=== PATIENT | female | born 1985 | race Caucasian/White ===

== ENCOUNTER 2018-03-14 06:38 | Emergency (ER) | payer BC ==
--- NOTE | 2018-03-14 07:31 | EDM.PDOC ---
ED HPI GENERAL MEDICAL PROBLEM - General Chief Complaint: ENT Problem Stated Complaint: DENTAL COMPLAINT Time Seen by Provider: 03/14/18 07:07 Source of Information: Reports: Patient, RN (Linda) History Limitations: Reports: No Limitations - History of Present Illness INITIAL COMMENTS - FREE TEXT/NARRATIVE: The patient states that she underwent right carpal tunnel release under general anesthesia 2 days ago, 03/12/2018. She states that she developed a some discomfort to her right maxillary sinus area that evening. She woke with right maxillary pain yesterday morning, 03/13/2018, and over the course of the day yesterday, the pain extended to her upper right teeth. This morning she woke with swelling to the right maxillary sinus area. She denies having any dentalgia , such as with mastication. No recent fever. No nasal drainage. She states that her nasal mucous membranes feel dry and stuffy. No otalgia or decreased hearing , either side. No prior similar symptoms. The patient's PCP is Snehal Nelson. Right Face/Facial Pain Score (Numeric/FACES): 7 - Related Data Allergies Allergy/AdvReac Type Severity Reaction Status Date / Time No Known Allergies Allergy Verified 03/14/18 07:14 Home Meds: Home Meds Hydrocodone/Acetaminophen [Hydrocodon-Acetaminophen 5-325] 1 tab PO Q4H PRN [History] Past Medical History - Past Surgical History HEENT Surgical History: Reports: Oral Surgery (wisdom teeth extraction 2015) Female Surgical History: Reports: Section ( 2005), Tubal Ligation ( 2005) Musculoskeletal Surgical History: Reports: Carpal Tunnel (right only, 03/12/2018) Social & Family History - Tobacco Use Smoking Status *Q: Former Smoker Years of Tobacco use: 16 Packs/Tins Daily: 0.5 Month/Year Tobacco Last Used: Quit 2016 - Caffeine Use Caffeine Use: Reports: None - Alcohol Use Alcohol Use History: Yes Alcohol Use Frequency: Socially - Recreational Drug Use Recreational Drug Use: No - Living Situation & Occupation Living situation: Reports: , with Spouse, with Family (3 kids) Occupation: Employed ([employer] for [employer]) ED ROS GENERAL - Review of Systems Review Of Systems: ROS reveals no pertinent complaints other than HPI. ED EXAM, GENERAL - Physical Exam Exam: See Below Exam Limited By: No Limitations General Appearance: Alert, WD/WN, No Apparent Distress Eye Exam: Bilateral Eye: EOMI, Normal Inspection Ears: Normal External Exam, Normal Canal, Hearing Grossly Normal, Normal TMs Nose: Normal Inspection, No Blood, Other (Bilateral nasal mucosa edema, with no rhinorrhea or nasal drainage) Throat/Mouth: Normal Inspection, Normal Lips, Normal Teeth, Normal Gums, Normal Oropharynx, Normal Voice, No Airway Compromise Head: Atraumatic, Normocephalic, Facial Swelling (the patient believes that she has mild swelling to her right maxillary area, including the right nasolabial fold and upper right lip - I do not appreciate any swelling), Sinus Tenderness ( right maxillary only) Neck: Normal Inspection, Supple, Non-Tender, Full Range of Motion. No: Lymphadenopathy (L), Lymphadenopathy (R) Course - Vital Signs Last Recorded V/S: Last Vital Signs Temp 36.8 C 03/14/18 07:04 Pulse 76 03/14/18 07:04 Resp 16 03/14/18 07:04 BP 113/76 03/14/18 07:04 Pulse Ox 98 03/14/18 07:04 - Re-Assessments/Exams Free Text/Narrative Re-Assessment/Exam: 03/14/18 07:28 Clinically, the patient likely has right maxillary sinusitis, but I want to be sure that there was no physical damage caused when she was intubated 2 days ago. I don't know if a nasogastric tube was placed. I have therefore ordered a CT of the sinuses. We discussed the risk of radiation, and the alternative of evaluation by ENT, however, the patient would prefer to go the CT route. 03/14/18 08:02 CT of the paranasal sinuses without contrast is read by Dr. Castle as: 1. Incidental nasal septal deviation. 2. CT study of the paranasal sinuses is otherwise unremarkable. 03/14/18 08:11 Case discussed with [place] at [facility] at 08:09. She attempted to put me in touch with the ENT Dr. Reeves, however, Dr. Reeves is currently unavailable. She expects that Dr. Reeves will be available in about 10 minutes, and will call me back. 03/14/18 08:[address] Reeves at 08:27. She recommends that the patient start using [id number]-jfzlpay Flonase, and she would like to evaluate the patient in her office tomorrow morning at 10:15 [address], for nasal endoscopy. 03/14/18 08:39 The above plan was discussed with the patient. She is agreeable. I have pushed the CT images to [facility]. Departure - Departure Time of Disposition: 08:33 Disposition: Home, Self-Care 01 Condition: Fair Clinical Impression: Disorder of maxillary sinus - Discharge Information *PRESCRIPTION DRUG MONITORING PROGRAM REVIEWED*: Not Applicable *COPY OF PRESCRIPTION DRUG MONITORING REPORT IN PATIENT ELEAZAR: Not Applicable Referrals: Snehal Nelson PA-C [Primary Care Provider] - Pham De Paz MD [Ordering Only Provider] - Forms: ED Department Discharge Additional Instructions: You were seen in the emergency room for pain and swelling to the right side of her face. On evaluation, your symptoms are localized to your right maxillary sinus. Workup in the ER included a CT scan of your sinuses, which returned normal. You do not have sinusitis, sinus infection, and no physical damage was found. Your case was discussed with the ENT Dr. Reeves. She recommended that you begin using [id number] Flonase, and she would like to see you in her office in [place] at 10:15 [address], tomorrow, , 03/15/2018. For your discomfort, we recommend that you take [id number]-[id number] ibuprofen, 2-3 tablets (400-600 mg) every 8 hours, with food, as needed for discomfort. If any other problems, please do not hesitate to return to the ER.
--- NOTE | 2018-03-14 07:59 | CT ---
CT paranasal sinuses Technique: Multiple axial sections through the paranasal sinuses were obtained. Reconstructed coronal and sagittal images were reviewed. Comparison: No previous study. Findings: Mastoid sinuses and middle ear cavities are clear. Paranasal sinuses are clear. No mucosal thickening or air-fluid levels are seen within the paranasal sinuses. Mild nasal septal deviation is seen. No acute bony abnormality is identified. Impression: 1. Incidental nasal septal deviation. 2. CT study of the paranasal sinuses is otherwise unremarkable. Diagnostic code #2
== END 2018-03-14 08:50 | disposition home or self-care (01) ==
LOC: JD.ED 06:38
DX: J34.9 Unspecified disorder of nose and nasal sinuses (principal); Z87.891 Personal history of nicotine dependence
CPT/HCPCS: 70486; 70486-26; 99282; 99284-25